=== PATIENT | male | born 1980 | race Caucasian/White ===

== ENCOUNTER 2018-01-26 17:30 | Emergency (ER) | payer SELFPAY ==
[2018-01-26] MEDS ORDERED: Ondansetron HCl/PF 4 MG/2 ML Vial ONE (17:39)
[2018-01-26] MEDS ORDERED: Morphine 4 MG/ML VIAL ONE (17:40)
[2018-01-26 17:50] LABS: #Basophils 0.1 thou/uL (0.0-0.2); #Eosinphils 0.1 thou/uL (0.0-0.7); #Lymphocytes 2.3 thou/uL (1.20-3.40); #Monocytes 0.6 thou/uL (0.11-0.59); #Neutrophils 4.4 thou/uL (1.40-6.50); %Basophils 1.1 % (0.0-1.0); %Lymphocytes 31.4 % (21.0-51.0); %Monocytes 7.3 % (0.0-10.0); %Neutrophils 59.1 % (42.0-75.0); Hemoglobin 16.4 g/dL (14.0-18.0); Mean Corpuscular HGB CONC 35.1 g/dL (32.0-36.0); Mean Corpuscular Volume 94.2 fL (78.0-98.0); Mean Platelet Volume 8.1 fL (7.4-10.4); Platelet Count 225 thou/uL (130-400); RBC Distribution Width 11.6 % (11.5-14.5); Red Blood Cell (RBC) Count 4.97 mill/uL (4.70-6.10); White Blood Cell (WBC) Count 7.5 thou/uL (4.8-10.8)
[2018-01-26 18:13] LABS: ALT (SGPT) 24 U/L (8-55); AST (SGOT) 23 U/L (5-34); Albumin 5.2 g/dL (3.5-5.0); Alkaline Phosphatase 84 U/L (40-150); Anion Gap 18 mmol/L (10-20); BUN (Urea Nitrogen) 10 mg/dL (8.9-20.6); Bilirubin, Total 1.2 mg/dL (0.2-1.2); Calc. Creatinine Clearance 0 mL/min (70-130); Calcium 10.6 mg/dL (7.8-10.44); Carbon Dioxide 21 mmol/L (22-29); Chloride 106 mmol/L (98-107); Estimated GFR-MDRD 70; Globulin 3.6 g/dL (2.4-3.5); Glucose 78 mg/dL (70-105); Lipase 41 U/L (8-78); Potassium 3.7 mmol/L (3.5-5.1); Protein, Total 8.8 g/dL (6.0-8.3); Sodium 141 mmol/L (136-145)
--- NOTE | 2018-01-26 19:11 | ULT ---
ULTRASOUND SCROTUM TESTICLES DOPPLER DUPLEX: DATE: 01-26-18 TIME: 6:09 p.m. HISTORY: 37-year-old male with scrotal pain. Rule out testicular torsion. TECHNIQUE: Macario-scale evaluation of intrascrotal contents. Color flow Doppler and spectral waveform analysis of the testicles. FINDINGS: The bilateral testicles are normal in size, have homogeneously normal echogenicity, and have symmetri manjula blood flow. The epididymal heads are bilaterally normal in size. There is no intratesticular ma ss, hydrocele, or varicocele. IMPRESSION: Normal. jn [] POS: DOMINIC
[2018-01-26 19:15] LABS: Bilirubin Negative (Negative); Blood, Urine Negative (Negative); Clarity CLEAR (Clear); Glucose, Urine (Dipstick) Negative (Negative); Leukocyte Small (Negative); Nitrite Negative (Negative); Protein, Urine (Dipstick) Negative (Neg-Trace); Specific Gravity, Urine 1.016 (1.002-1.036); pH, Urine 8.5 (5.0-9.0)
[2018-01-26 19:17] LABS: Bacteria/HPF None Seen HPF (None Seen); Hyaline Casts/LPF 0-3 HYALINE CAST LPF (0-3 Hyaline); Pathc Cast-AUWi Flag 0.14 (0-2.49); RBC/HPF 0-3 HPF (0-3); Squamous Epithelial 0-3 HPF (0-3); WBC/HPF 0-3 HPF (0-3)
--- NOTE | 2018-01-26 20:16 | CT ---
CT OF THE ABDOMEN AND PELVIS WITHOUT CONTRAST: Indication: Left sided testicular pain. Concern for inguinal hernia. FINDINGS: No comparisons are available. The lung bases are clear. The unopacified liver, spleen, pancreas, adrenal glands and kidneys appear within normal limits. There are mild vascular calcifications, none involve the abdominal aorta. There is a normal appendix in the right lower quadrant of the abdomen. The bladder, prostate, rectal and perirectal soft tissues are within normal limits for age. There is a mild amount of retained stool within the colon. Small bowel is of normal caliber. No large inguinal hernia is demonstrated. No definite acute osseous abnormality is evident. IMPRESSION: 1. No acute abnormality. 2. No inguinal hernia demonstrated. POS: BH
== END 2018-01-26 22:34 | disposition home or self-care (01) ==
LOC: ERS 17:30
DX: N50.812 Left testicular pain (principal); R10.32 Left lower quadrant pain; F32.9 Major depressive disorder, single episode, unspecified
CPT/HCPCS: 74176; 76870; 80053; 81003; 81015; 83690; 85025; 87086; 93976; 96361; 96374; 96375; J2270; J2405